=== PATIENT | male | born 2000 | race Caucasian/White ===

== ENCOUNTER 2023-09-02 14:02 | Outpatient (OUT) | payer OTHER, SELFPAY ==
--- NOTE | 2023-09-02 14:11 | XR_ITS ---
The [address] [address] Patient Name: KRISTINE MCDOWELL MRN: [id number] date: 2000 Sex: M Assigned Patient Location: [facility] Current Patient Location: Accession/Order Number: [id number] Exam Date: 09/02/2023 14:20 Report Date: 09/06/2023 07:36 At the request of: GLADIS ROMO Procedure: XR cervical spine 5V EXAMINATION: XR cervical spine 5V HISTORY: Localized Swelling and Mass ; lump on back of neck COMPARISON: No relevant comparison available. FINDINGS: BONES: No significant spondylosis, scoliosis, fracture, or visible bony lesion. DISC SPACES: No significant disc height narrowing, subluxation, or endplate abnormality. PARASPINOUS: Soft tissue thickening posterior lower aspect of neck which appears to be confined to the subcutaneous fat. OTHER: Negative. XR/XR cervical spine 5V IMPRESSION: 1. Thickening of the subcutaneous fats of the posterior lower neck; nonspecific but possibly representing a lipoma. Consider ultrasound evaluation, or consider MRI of cervical spine if ultrasound is nondiagnostic. Electronically authenticated by: ELLIE MEREDITH Date: 09/06/2023 07:36
== END 2023-09-02 14:03 | disposition home or self-care (01) ==
LOC: RAD 14:07
PROVIDERS: Visit Provider Nurse Practitioner
DX: R22.1 Localized swelling, mass and lump, neck (principal)
CPT/HCPCS: 72050

== ENCOUNTER 2023-09-09 16:52 | Outpatient (OUT) | payer OTHER, SELFPAY ==
--- NOTE | 2023-09-09 | US_ITS ---
The [place] [id number] Patient Name: KRISTINE MCDOWELL MRN: [id number] date: 2000 Sex: M Assigned Patient Location: [place] Current Patient Location: Accession/Order Number: [id number] Exam Date: 09/09/2023 17:40 Report Date: 09/10/2023 06:25 At the request of: GLADIS ROMO Procedure: US soft tissue head and neck EXAMINATION: US soft tissue head and neck HISTORY: Mass on neck ; patient feels lump on lower posterior neck for 6 months COMPARISON: No relevant comparison available. FINDINGS: No mass, fluid collection, or encapsulated fat/appreciable lipoma within posterior neck soft tissues. US/US soft tissue head and neck IMPRESSION: 1. No abnormal or suspicious findings to account for patient's symptoms. Electronically authenticated by: ELLIE MEREDITH Date: 09/10/2023 06:25
== END 2023-09-09 16:53 | disposition home or self-care (01) ==
PROVIDERS: Visit Provider Nurse Practitioner
DX: R22.1 Localized swelling, mass and lump, neck (principal)
CPT/HCPCS: 76536